=== PATIENT | female | born 1955 | race Caucasian/White ===

== ENCOUNTER → 2016-11-01 | Outpatient (CLI) | payer MEDICARE ==
--- NOTE | 2016-11-01 12:04 | MRI ---
EXAM DESCRIPTION: Brain MRI. CLINICAL HISTORY: Multiple sclerosis, headaches and syncopal episode. COMPARISON: MRI from 2008 TECHNIQUE: Multiplanar, multisequence MR images were acquired with and without IV contrast. FINDINGS: There are multiple T2 hyperintensities noted within the cerebral white matter on today's exam. These are stable in distribution, size and number when compared to prior study from November 19, 2007. There is no abnormal enhancement on today's exam on the 2D or 3D post contrasted images. Midline structures are unremarkable. Be matter is unremarkable. No abnormal extra-axial fluid. The ventricles are midline and unremarkable. Basilar cisterns are widely patent. Flow voids are maintained within the intracranial vessels. The orbits and globes are unremarkable. Paranasal sinuses are clear. IMPRESSION: All findings are unchanged when compared to November 19, 2007. Multiple T2 hyperintensities without enhancement are again unchanged. No new findings on today's exam to account for patient's headaches. Electronically signed by: Jhonatan Lee MD 11/01/2016 12:02
== END ==
LOC: MRI 07:58
PROVIDERS: ATTEND Psychiatry & Neurology Neurology
DX: G35 Multiple sclerosis (principal); Z01.812 Encounter for preprocedural laboratory examination

== ENCOUNTER → 2016-11-14 | Outpatient (CLI) | payer MEDICARE | LOC: GMAM 14:51 | PROVIDERS: ATTEND Family Medicine | DX: E04.2 Nontoxic multinodular goiter (principal) ==

== ENCOUNTER → 2017-06-12 | Outpatient (CLI) | payer MEDICARE | END | disposition home or self-care (01) | LOC: GMAM 10:58 | PROVIDERS: ATTEND Family Medicine | DX: E04.2 Nontoxic multinodular goiter (principal) ==

== ENCOUNTER → 2017-06-14 | Outpatient (CLI) | payer MEDICARE | END | disposition home or self-care (01) | LOC: GMAM 18:04 | PROVIDERS: ATTEND Family Medicine | DX: R31.1 Benign essential microscopic hematuria (principal); M54.5 Low back pain ==

== ENCOUNTER → 2017-08-13 | Outpatient (CLI) | payer MEDICARE ==
--- NOTE | 2017-08-13 11:41 | RAD ---
EXAM DESCRIPTION: Hand,Right 3 Views CLINICAL HISTORY: PAIN COMPARISON: None Available. TECHNIQUE: AP, LATERAL, AND OBLIQUE FINDINGS: Three-view right hand shows arthritic changes most prominent at the first carpometacarpal joint and at the second DIP joint with joint space narrowing and subchondral sclerosis and early marginal osteophyte formation. No fracture or bone lesion. IMPRESSION: 1. Osteoarthritis Electronically signed by: Jose De Jesus Jaramillo MD 08/13/2017 11:40 AM CDT
--- NOTE | 2017-08-13 11:41 | RAD ---
EXAM DESCRIPTION: Left hand, 3 views CLINICAL HISTORY: PAIN FINDINGS/ IMPRESSION: Multifocal interphalangeal osteoarthritis with joint space narrowing and marginal osteophytes most significantly affecting the index finger. Osteoarthritis carpometacarpal joint of the thumb and STT joint with joint space narrowing and small marginal osteophytes No fracture or acute osteochondral lesion. No demineralization or inflammatory erosion Electronically signed by: Joseph Leong MD 08/13/2017 11:40 AM CDT
== END | disposition home or self-care (01) ==
LOC: RAD 08:08
PROVIDERS: ATTEND Orthopaedic Surgery
DX: M79.641 Pain in right hand (principal); Z01.818 Encounter for other preprocedural examination

== ENCOUNTER 2017-08-22 05:49 | Day surgery (SDC) | payer MEDICARE ==
--- NOTE | 2017-08-20 10:59 | HP ---
CHIEF COMPLAINT: Hand numbness. HISTORY OF PRESENT ILLNESS: Oksana is a 61-year-old female with a history of pain and numbness in the right hand. She has had this going on for a long time and it has been getting progressively worse. She denies any radiation of pain or neurologic symptoms proximal to the wrist. She does not have any lower extremity neurologic symptoms at this time. Because of the ongoing nature of this, she has requested operative intervention. After discussing the risks, benefits and alternatives to that, the patient has given informed consent. PAST SURGICAL HISTORY: 1. Lumbar surgery. MEDICATIONS: 1. Adipex. 2. Calcium. 3. Celexa. 4. Lyrica. 5. Metformin. 6. Nalfon. 7. Potassium. 8. Premarin. 9. Tizanidine. 10. Tysabri. 11. Zocor. 12. Vitamin D. ALLERGIES: DICLOFENAC, HYDROXYCHLOROQUINE, QUINISULFATE. CODE STATUS: DNR. IMMUNIZATIONS: Up to date. SOCIAL HISTORY: The patient does not drink or use any illicit drugs. She does smoke. FAMILY HISTORY: None pertinent to today's complaint. REVIEW OF SYSTEMS: Negative except as indicated in the History of Present Illness. PHYSICAL EXAMINATION: VITAL SIGNS: Blood pressure 135/73. Pulse 56. Height 5'6". Weight 190. MENTAL STATUS: The patient is awake, alert, and is able to give a good history and participate in the physical. The patient is oriented to person, place and time. SKIN: Normal tone and turgor. HEENT: Normocephalic, atraumatic. Pupils equal, round and reactive. Mucosal membranes are moist. NECK: Normal range of motion. No thyromegaly, no lymphadenopathy. CHEST: Normal respiratory excursion. CARDIAC: Regular rate and rhythm. No murmurs, rubs or gallops. MUSCULOSKELETAL: She has positive carpal compression test. She has no significant thenar atrophy. She has positive Tinel's. She has full eyeglass inspector strength. She has full abduction strength. The hand is warm and well perfused. ASSESSMENT: 1. Carpal tunnel syndrome. PLAN: The plan at this point is for carpal tunnel release. We have discussed the risks, benefits, and alternatives to that and the patient has given informed consent. #[id number] [facility]
[2017-08-22] MEDS ORDERED: LACTATED RINGERS 1,000 ML ONE (05:57)
[2017-08-22] MEDS ORDERED: SODIUM CHL 0.9% 100ML MINI-BAG 100 ML IVPB ONE (05:57)
[2017-08-22] MEDS ORDERED: ceFAZolin SODIUM 1 GM VIAL ONE ×2 (05:58→07:52)
[2017-08-22] MEDS ORDERED: LIDOCAINE 1% 50 ML VIAL INJ ONE (07:52)
[2017-08-22] MEDS ORDERED: BUPIVACAINE 0.25% INJ 30 ML VIAL INJ ONE (07:52)
[2017-08-22] MEDS ORDERED: VANCOMYCIN HCL INJ 1,000 MG VIAL IVPB ONE (07:52)
[2017-08-22] MEDS ORDERED: MIDAZOLAM INJ 2 MG/2 ML VIAL ONE (09:44)
[2017-08-22] MEDS ORDERED: fentaNYL CITRATE INJ 50 MCG/ML AMP ONE (09:45)
[2017-08-22] MEDS ORDERED: LIDOCAINE 1% 10 ML VIAL INJ ONE (10:00)
[2017-08-22] MEDS ORDERED: PROPOFOL 200 MG/20 ML VIAL IV ONE (10:00)
[2017-08-22] MEDS ORDERED: GLYCOPYRROLATE 0.2 MG/ML VIAL IV ONE (10:00)
[2017-08-22 11:22] VITALS: O2SAT 95
[2017-08-22 11:25] VITALS: BP 152/81; TEMP 97.5
--- NOTE | 2017-08-23 08:58 | OP ---
DATE OF PROCEDURE: 08/22/17 PREOPERATIVE DIAGNOSIS: 1. Carpal tunnel syndrome. POSTOPERATIVE DIAGNOSIS: 1. Carpal tunnel syndrome. PROCEDURE: 1. Carpal tunnel release. SURGEON: Isiah Chicas MD. NEWSROOM INTERN: Pritesh Gray CST, -[employer]. ANESTHESIA: Local with sedation. COMPLICATIONS: None. FINDINGS: Thickening of the transverse carpal ligament. INDICATION: Ms. Larry has a long history of symptoms consistent with carpal tunnel syndrome. She has had conservative measures, however, has failed to gain relief. Because of the ongoing symptoms and failure of conservative measures, the patient has requested operative intervention. After discussing the risks, benefits and alternatives to that, the patient has given informed consent for carpal tunnel release. PROCEDURE: The patient was brought to the Operating Room and placed in the supine position. Sedation was administered and local anesthetic was injected into the operative area under sterile conditions. After the injection of anesthetic, the arm was sterilely prepped and draped. A longitudinal incision was made directly overlying the transverse carpal ligament and blunt dissection was carried down to the ligament. The transverse carpal ligament was sharply transected along its length and a Biggers elevator was used to ensure complete release of the ligament. Once release had been confirmed, the wound was thoroughly irrigated and the wound was closed with Nylon suture. A sterile dressing was placed and the patient was taken to the Day Surgery Unit. POSTOPERATIVE INSTRUCTIONS: The patient has been encouraged to do range of motion of the digits and will followup with us in two days. [facility][id number] [facility]
== END 2017-08-22 11:15 | disposition home or self-care (01) ==
LOC: AMB 05:49
PROVIDERS: ATTEND Orthopaedic Surgery
DX: G56.01 Carpal tunnel syndrome, right upper limb (principal); I10 Essential (primary) hypertension; E11.9 Type 2 diabetes mellitus without complications; E66.9 Obesity, unspecified; F17.200 Nicotine dependence, unspecified, uncomplicated; J44.9 Chronic obstructive pulmonary disease, unspecified; Z88.8 Allergy status to other drugs, medicaments and biological substances; Z79.84 Long term (current) use of oral hypoglycemic drugs; Z79.899 Other long term (current) drug therapy
CPT/HCPCS: 01810; 36416; 64721; 82948; J0690; J2250; J3010; J3370; J3490; J7050; J7120

== ENCOUNTER → 2017-10-05 | Outpatient (CLI) | payer MEDICARE | LOC: GMAM 10:37 | PROVIDERS: ATTEND Family Medicine | DX: E04.2 Nontoxic multinodular goiter (principal) ==

== ENCOUNTER → 2017-12-10 | Outpatient (CLI) | payer MEDICARE ==
--- NOTE | 2017-12-10 12:52 | MRI ---
EXAM DESCRIPTION: Brain w/wo Contrast: Magnetic Resonance Imaging. CLINICAL HISTORY: Multiple sclerosis. COMPARISON: MR scans cervical spine without and with gadolinium IV contrast on this visit. MRI scan of the brain without and with gadolinium IV contrast 11/01/2016. TECHNIQUE: Multiplanar, high-field MRI, multiple conventional sequences, without and with gadolinium IV contrast. No adverse reactions. Multiple axial diffusion sequences. FINDINGS: Multifocal right FLAIR and T2-weighted signal in the periventricular white matter and renteria-white matter junctions of the cerebral hemispheres. . Stable since the prior study. No hemorrhage or abnormal contrast enhancement. Normal signal in the bilateral basal ganglia. No hemorrhage, no cerebral edema, no mass-effect. Normal contrast enhancement. Normal signal in the cerebellar hemispheres. No hemorrhage, no cerebral edema, no mass-effect. Normal contrast enhancement. Bilateral bright FLAIR signal in the moris of the brainstem is symmetric with no hemorrhage mass effect or abnormal contrast enhancement. Concordance of the diffusion and non-diffusion sequences with no evidence of acute or subacute infarction. Cortical sulci, ventricles, and other CSF spaces, and the subdural spaces are normally configured for patients age. No effacement or displacement. No midline shift. No extra-axial hemorrhage. Normal contrast enhancement. Normal flow signal void in the major vessels of the [place], and the venous sinuses. IACs are symmetric bilaterally. Normal signal in the mastoid air cells. No mass effect in the bilateral Cerebellopontine angles. Normal contrast enhancement. Pituitary gland occupies most of the sella. Normal contrast enhancement. Base of the cerebellar tonsils is at the level of the foramen magnum. Mucoperiosteal thickening in the anterior bilateral ethmoid air cells; normal signal in the remaining paranasal sinuses. The bony calvarium is intact. IMPRESSION: 1. Multiple bilateral focal white matter lesions in the cerebral hemispheres and also in the moris of the brainstem. Stable since the prior study. These lesions are not enhancing. No mass effect. No new lesions. Findings would be consistent with multiple sclerosis in remission. Electronically signed by: Pritesh Brennan MD 12/10/2017 12:51 PM [facility]
--- NOTE | 2017-12-10 13:28 | MRI ---
EXAM DESCRIPTION: Cervical Spine w/wo Contrast: MRI. CLINICAL HISTORY: Multiple sclerosis. COMPARISON: MRI scan cervical spine 12/10/2017. MRI scan of the brain without and with gadolinium IV contrast on this visit. TECHNIQUE: Multiplanar MRI, multiple sequences, before and after gadolinium IV High-field. FINDINGS: Minimal arthrosis in the atlantoaxial joint. Prominence of the posterior aspect of the superior odontoid process almost abutting the superior cervical cord. No edema or cord compression at any level. No abnormal contrast enhancement. Minimal disc desiccation and disc space loss C2-3. No disc bulging. Canal and foramina are patent. Facets are unremarkable. Normal contrast enhancement. C5-6: Disc desiccation with anterior bulging and minimal endplate ridging. Posterior disc space loss. Posterior Modic type I endplate reactive changes with trace anterolisthesis. Disc not abutting the cord. Left uncinate spur and moderate narrowing of the left neural foramen. Mild canal narrowing. Bilateral facets are unremarkable. Normal contrast enhancement. C6-7: Disc desiccation with anterior bulging and endplate ridging. Posterior bulging 3 mm but not abutting the cord. Bilateral uncinate spur and mild bilateral neural foraminal narrowing. Facets are negative. No abnormal contrast enhancement. C7-T1: Minimal disc desiccation and disc space preserved. Trace anterolisthesis. Tiny posterior bulge. Canal and neural foramina are patent. Facets are negative. Normal contrast enhancement. T1-2: Disc desiccation with anterior bulging and endplate ridging. Minimal disc space loss. Trace anterolisthesis. Tiny posterior bulge but not abutting the cord. Bilateral uncinate spurs and minimal neural foraminal narrowing. Mild canal narrowing. Normal contrast enhancement. Normal signal in the C3-4 and C4-5 discs with no bulging. Disc spaces preserved. Canal and neural foramina are patent. Facets are negative. Normal contrast enhancement of the disc and facets. Bright T1 and T2 signal abutting the T2-3 disc space. Also bright on inversion recovery sequences. More diffuse in the T3 vertebral body. Disc space is decreased. Also endplate reactive changes abutting the disc at T3-T4 bright T2 and decreased signal T1. Minimal contrast enhancement. Normal enhancement in the cord with no canal stenosis. Spine is normally lordotic. Base of the cerebellar tonsils is above the foramen magnum. Paravertebral soft tissues negative.. Vertebral bodies are not compressed at any level. Normal marrow signal in the remaining vertebral bodies and the posterior elements. IMPRESSION: 1. No abnormal cord signal and no cord enhancement. No cord edema or compression. 2. C5-6 disc desiccation posterior spondylosis. Moderate narrowing of the left neural foramen. Not as severe as on the prior study. Normal contrast enhancement. 3. Posterior C6-7 disc bulge, mild bilateral neural foraminal narrowing. Normal enhancement. 4. Spondylosis at C2-3 and T3-4 which is progressed since the prior study. Electronically signed by: Pritesh Brennan MD 12/10/2017 1:27 PM [facility]
== END ==
LOC: MRI 07:05
PROVIDERS: ATTEND Psychiatry & Neurology Neurology
DX: G35 Multiple sclerosis (principal); G56.01 Carpal tunnel syndrome, right upper limb; G56.02 Carpal tunnel syndrome, left upper limb; M50.122 Cervical disc disorder at C5-C6 level with radiculopathy; M50.223 Other cervical disc displacement at C6-C7 level; Z01.812 Encounter for preprocedural laboratory examination

== ENCOUNTER → 2018-03-11 | Outpatient (CLI) | payer MEDICARE | LOC: GMAM 11:20 | PROVIDERS: ATTEND Family Medicine | DX: E04.2 Nontoxic multinodular goiter (principal) ==

== ENCOUNTER → 2018-07-02 | Outpatient (CLI) | payer MEDICARE | LOC: GMAM 14:41 | PROVIDERS: ATTEND Family Medicine | DX: E04.2 Nontoxic multinodular goiter (principal); Z79.899 Other long term (current) drug therapy ==

== ENCOUNTER → 2018-07-03 | Outpatient (CLI) | payer MEDICARE ==
--- NOTE | 2018-07-08 14:29 | MAM ---
EXAM DESCRIPTION: 3D Screening BILATERAL : Digital Mammography. CLINICAL HISTORY: 62 years Female SCREENING . No complaints. No personal history or family history of breast cancer. Childbirth. Postmenopausal. No HRT. Lifetime risk of developing breast cancer (Tyrer-Cuzick model) is 5.2 %. COMPARISON: 2-D digital screening bilateral study 06/27/2016. TECHNIQUE: Bilateral CC and MLO projection full-field images, Digital tomosynthesis mammographic technique. Bilateral digital 2-D full-field MLO images. CAD not utilized. FINDINGS: The breast parenchymal density pattern is: Scattered areas of fibroglandular density. No skin thickening or nipple retraction. Lymph nodes in the right axillary tail. Bilateral solitary microcalcifications. No new focal, stellate mass or density, focal asymmetry , and no suspicious microcalcifications bilaterally. Stable mammograms compared to prior study. Taking into account, differences in mammographic technique. IMPRESSION: Benign exam. BIRAD CATEGORY: 2 BENIGN FINDINGS. RECOMMENDATIONS: FOLLOW UP: Routine digital bilateral screening, one year interval from June 2018. Written communication explaining the IMPRESSION and follow-up, will be mailed to the patient and referring health care provider. According to the [employer], yearly mammograms are recommended starting at age 40 and continuing as long as a woman is in good health. Any breast change noted on a breast self-exam should be reported promptly to the patient's healthcare provider. Breast MRI is recommended for women with an approximately 20-25% or greater lifetime risk of breast cancer, including women with a strong family history of breast or ovarian cancer and women who have been treated for Hodgkin's disease. A negative mammographic report should not delay tissue diagnosis in patients with significant clinical history or physical findings. Extremely dense breast tissue limits the sensitivity of digital mammography. Electronically signed by: Pritesh Brennan MD 07/08/2018 2:28 PM CDT
== END ==
LOC: MAMMO 10:04
PROVIDERS: ATTEND Family Medicine
DX: Z12.31 Encounter for screening mammogram for malignant neoplasm of breast (principal)

== ENCOUNTER → 2018-11-06 | Outpatient (CLI) | payer MEDICARE | LOC: GMAM 16:53 | PROVIDERS: ATTEND Family Medicine | DX: R07.89 Other chest pain (principal) ==

== ENCOUNTER → 2019-01-16 | Outpatient (CLI) | payer MEDICARE | LOC: GMAM 14:20 | PROVIDERS: ATTEND Family Medicine | DX: E04.2 Nontoxic multinodular goiter (principal) ==

== ENCOUNTER → 2019-02-06 | Outpatient (CLI) | payer MEDICARE ==
--- NOTE | 2019-02-06 17:35 | US ---
US THYROID CLINICAL STATEMENT: THYROID NODULE. COMPARISON: None TECHNIQUE: Transcutaneous scanning, grayscale and Doppler modes. FINDINGS: Size right thyroid lobe: 3.0 x 1.9 x 1.7 cm Size left thyroid lobe: 2.5 x 1.4 x 1.3 cm Size isthmus: 0.2 cm Estimated total number of nodules greater than or equal to 1 cm: 2. Left lobe is heterogeneous with no nodules or cysts. Nodule 1: Size: 1.0 x 0.6 x 0.6 cm Location: Right Upper Composition: solid or almost completely solid: 2 points Echogenicity: hypoechoic: 2 points Shape: wider than tall: 0 points Margins: smooth: 0 points Echogenic foci: none: 0 points ACR Total Points: 4; ACR TI-RADS risk category: TR4 - moderately suspicious nodule. Nodule 2: Size: 1.3 x 1.2 x 0.8 cm Location: Right Lower Composition: solid or almost completely solid: 2 points. Minimally vascular. Echogenicity: hypoechoic: 2 points Shape: wider than tall: 0 points Margins: smooth: 0 points Echogenic foci: none: 0 points. ACR Total Points: 4; ACR TI-RADS risk category: TR4 - moderately suspicious nodule. Nodule 3: Size: 0.5 x 0.5 x 0.4 cm Location: Right Mid Composition: solid or almost completely solid: 2 points Echogenicity: hypoechoic: 2 points Shape: wider than tall: 0 points Margins: smooth: 0 points Echogenic foci: none: 0 points ACR Total Points: 4; ACR TI-RADS risk category: TR4 - moderately suspicious nodule. The soft tissue around the thyroid gland is unremarkable with no distinct cyst or dominant solid mass. No parenchymal edema or large calcifications. No overlying skin changes. Normal vascularity. IMPRESSION: 1. Nodule 1: ACR TI-RADS 2017 Category TR4. Recommend: Follow-up ultrasound in 1 year.. Recommendations based upon [facility] Best Practice recommendations and ACR TI-RADS 2017 guidelines. Please see below*. 2. Nodule 2: ACR TI-RADS 2017 Category TR4. Recommend: Follow-up ultrasound in 1 year. 3. Nodule 3: ACR TI-RADS 2017 Category TR4. Recommend: No further follow-up. 4. The soft tissue around the thyroid gland is unremarkable. *ACR TI-RADS 2017 Recommendations: TR1: No FNA or follow up TR2: No FNA or follow up TR3: FNA if >/= 2.5 cm, follow up if 1.5 - 2.4 cm in 1, 3, and 5 years TR4: FNA if >/= 1.5 cm, follow up if 1.0 - 1.4 cm in 1, 2, 3, and 5 years TR5: FNA if >/= 1.0 cm, follow up if 0.5 - 0.9 cm every year for 5 years ACR TI-RADS recommends that no more than two nodules with the highest ACR TI-RADS total point should be biopsied and no more than four nodules should be followed. These recommendations do not apply to patients with increased risk for thyroid cancer or patients with symptomatic thyroid disease. Electronically signed by: Pritesh Brennan MD 02/06/2019 5:32 PM CDT
== END ==
LOC: US 09:50
PROVIDERS: ATTEND Family Medicine
DX: E04.2 Nontoxic multinodular goiter (principal)

== ENCOUNTER → 2019-05-20 | Outpatient (CLI) | payer MEDICARE | LOC: GMAM 10:15 | PROVIDERS: ATTEND Family Medicine | DX: E04.2 Nontoxic multinodular goiter (principal); E78.00 Pure hypercholesterolemia, unspecified; E11.9 Type 2 diabetes mellitus without complications ==

== ENCOUNTER 2019-10-24 07:48 | Observation (INO) | payer MEDICARE ==
--- NOTE | 2019-10-24 08:03 | ED.PDOC ---
History of Present Illness - General Time Seen by Provider: 10/24/19 07:51 Source: patient, RN notes reviewed, Vital Signs reviewed, old records Exam Limitations: no limitations Additional Information: Patient presents with worsening SOB over the past 24 hours. She endorses a non- productive cough with nasal congestion over the past week. She denies any recent fevers, chills, nausea, vomiting or CP. No recent Abx. Recently on prednisone taper, last dose on 10/22/2019. She does smoke. Denies previous hx of COPD. Does not use any inhalers or nebs. States that she just feels like she cannot catch her breath. She denies any leg swelling or leg pain. No recent travel or surgeries. - History of Present Illness Cough Quality/Degree: moderate, dry cough Possible Cause: unknown cause Improving Factors: nothing Associated Symptoms: cough, nasal congestion, nasal drainage, shortness of breath Allergies/Adverse Reactions: Allergies NO KNOWN ALLERGY Allergy (Verified 07/31/13 10:17) Home Medications: Ambulatory Orders Citalopram Hydrobromide [Celexa] 40 mg PO DAILY 07/25/13 Metformin HCl [Metformin Hydrochloride] 500 mg PO DAILY 08/20/17 Azathioprine [Imuran] 50 mg PO BEDTIME 10/24/19 Fluconazole [Diflucan Tab] 100 mg PO PRN 10/24/19 Gabapentin [Neurontin] 300 mg PO .BID-TID 10/24/19 Levetiracetam [Keppra] 500 mg PO DAILY 10/24/19 Prednisone 20 mg PO PRN 10/24/19 Rituximab [Rituxan] 100 mg IV .[id number] 10/24/19 Review of Systems - Review of Systems Constitutional: States: see HPI. Denies: fever EENTM: States: nose congestion Respiratory: States: cough Cardiology: Denies: chest pain Gastrointestinal/Abdominal: Denies: vomiting Genitourinary: Denies: frequency Musculoskeletal: Denies: back pain Skin: Denies: rash Neurological: Denies: headache Endocrine: Denies: increased urine Past Medical History (General) - Patient Medical History Hx Congestive Heart Failure: No Hx Diabetes: Yes Hx MRSA: No Family Medical History - Family History Mother Family History: Unknown Living Status: Unknown Physical Exam - Physical Exam General Appearance: Alert, Well Developed, Well Groomed, Well Hydrated, Well Nourished, Other - Appears uncomfortable ENT Exam: nasal congestion Neck: non-tender, full range of motion, supple, normal inspection Respiratory: accessory muscle use, wheezing - Diffuse expiratory wheezing bilaterally, other - tachypnea Cardiovascular/Chest: normal peripheral pulses, regular rate, rhythm, no edema, no gallop, no JVD, no murmur Gastrointestinal/Abdominal: normal bowel sounds, non tender, soft Extremity: no pedal edema, no calf tenderness Neurologic: city councilman II-XII nml as tested, alert, normal mood/affect, oriented x 3 Skin Exam: warm/dry Progress - Progress Progress: DDx: Pneumonia, Viral URI, Sinusitis, COPD Exacerbation Patient presented for evaluation of SOB. She was diffusely wheezing on arrival. CXR was not suggestive of underlying pneumonia. She was given albuterol 2.5mg along with Duoneb with improvement in breathing. However, she was still SOB. She was therefore given second treatment without significant improvement in tachypnea. She was having desaturations as well requiring 2L nasal cannula. SOB appears to be consistent with underlying lung disease. There is also hyperinflation on CXR suggestive of underlying lung disease. Patient is chronic smoker with no formal diagnosis of COPD however symptoms are suggestive of COPD with exacerbation. She was given oral prednisone. Following admission, lab work was ordered. Suspicion for underlying ACS is unlikely. She will be admitted to the floor for further treatment and management. 10/24/19 09:00 Patient received one neb with improvement in SOB. Wheezing improved and better air movement. Will give another neb treatment. CXR not suggestive of acute disease. 10/24/19 09:43 Discussed plan for admission with patient. Discussed patient with Dr. Brian Carmona, who accepted patient. Lab work ordered. Patient will be admitted for continued treatment of Acute respiratory failure. - EKG/XRAY/CT XRAY: chest - No focal infiltrate. Cardiomegaly without pleural effusion or pulmonary vascular congestion Departure - Departure Clinical Impression: COPD exacerbation, Acute bronchospasm, Acute respiratory failure Disposition: Admit Patient Condition: Fair Referrals: Joseph Aguilar MD [Primary Care Provider] - 1-2 Weeks Home Medications: Ambulatory Orders Citalopram Hydrobromide [Celexa] 40 mg PO DAILY 07/25/13 Metformin HCl [Metformin Hydrochloride] 500 mg PO DAILY 08/20/17 Azathioprine [Imuran] 50 mg PO BEDTIME 10/24/19 Fluconazole [Diflucan Tab] 100 mg PO PRN 10/24/19 Gabapentin [Neurontin] 300 mg PO .BID-TID 10/24/19 Levetiracetam [Keppra] 500 mg PO DAILY 10/24/19 Prednisone 20 mg PO PRN 10/24/19 Rituximab [Rituxan] 100 mg IV .[id number] 10/24/19
[2019-10-24] MEDS ORDERED: ALBUTEROL SULFATE 2.5 MG/3 ML VIAL NEB ONE ×2 (08:12→08:54)
[2019-10-24] MEDS ORDERED: IPRATROPIUM/ALBUTEROL 3 ML VIAL NEB ONE ×2 (08:12→08:54)
--- NOTE | 2019-10-24 08:32 | RAD ---
Study: Single Frontal Radiograph of the Chest. Indication:SOB Comparison: June 01, 2009 Impression: Cardiomegaly without failure. Lungs hyperexpanded but otherwise clear. No acute osseous abnormality. Electronically signed by: Kane José MD 10/24/2019 8:31 AM [facility]
--- NOTE | 2019-10-24 10:03 | HP ---
SUPERVISING PHYSICIAN: Vitor Contreras M.D. CHIEF COMPLAINT: Shortness of breath. HISTORY OF PRESENT ILLNESS: Ms. Larry is a 63 year-old female patient that presented to the Emergency Room today complaining of shortness of breath that had worsened over the last 24 hours. She notes that she has had some severe nasal congestion and sinus headaches, and has not seen anybody recently for any treatment. She noted over the last week her sinus congestion has gotten worse and she has developed some shortness of breath that was significantly worse overnight. She does have a history of multiple sclerosis and is on prednisone taper treatment started on the . She is a chronic smoker. Initially in the Emergency Room, her O2 saturations were showing that she was hypoxic on room air satting 85% on room air initially. Even after several breathing treatments she continued to sat 85 to 87. Initially had improved up to 92% on nasal cannula at 2 liters. She denies that she is O2 dependent. Laboratory studies did show she had a leukocytosis with a developing left shift. Chest x-ray showed cardiomegaly without any failure. Lungs were hyper expanded but otherwise clear. She was given additional breathing treatments in attempts to get her off oxygen and treat as an outpatient, but was continuing to show desaturations even at rest on nasal cannula. Given her degree of hypoxia and developing respiratory infection, the patient is going to be placed in observation tonight for more aggressive treatment and further evaluation. She was placed in observation in stable condition. PAST MEDICAL HISTORY: 1. Chronic obstructive pulmonary disease in a chronic smoker. 2. Chronic lumbar disc disease. 3. Osteopenia. 4. Rheumatoid arthritis. 5. Multiple sclerosis. 6. Diabetes mellitus type 2. 7. History of seizures. Last seizure reported 3 months previously. 8. Anxiety and depression. PAST SURGICAL HISTORY: 1. Carpal tunnel surgery on the right in 2017. 2. Bladder suspension. 3. Right breast biopsy that was benign. 4. Uterine ablation for fibroid removal. 5. Ovarian cyst. 6. Lumbar back surgery. 7. Last echocardiogram in 2017 that showed an ejection fraction of 60%. HOME MEDICATIONS: 1. Keppra 500 mg at bedtime. 2. Rituxan 100 mg every 6 months. 3. Prednisone 20 mg. 4. Metformin 500 mg daily. 5. Gabapentin 300 mg t.i.d. 6. Fluconazole 100 mg p.r.n. 7. Celexa 40 mg daily. 8. Imuran 50 mg at bedtime. ALLERGIES: NO KNOWN DRUG ALLERGIES. FAMILY HISTORY: Father at unknown age, but had a history of diabetes mellitus and immune disorders. Mother at age 53, had an aortic aneurysm. She has 2 brothers, one has muscular dystrophy and polio. She has another who has diabetes mellitus, hypertension, cardiovascular disease and rheumatoid arthritis and another that has another immune type disorder. She has 1 sister who has type 2 diabetes, is bipolar with lupus. SOCIAL HISTORY: The patient lives in [place]. She is . She has 1 child. She is disabled. She is a current smoker who smokes approximately 1/2 to 1 pack a day since age 13. She denies any alcohol or illicit drug use. REVIEW OF SYSTEMS: CONSTITUTIONAL: Denies any fevers but notes that she has some general malaise and generalized weakness. No unintentional weight loss. HEENT: Nasal congestion with sinus pressure. Negative for earaches, sore throat or vision changes. Positive for chronic mouth ulcers and thrush. RESPIRATORY: Mild productive cough, increasing shortness of breath as noted in History of Present Illness without any wheezing. CARDIOVASCULAR: Denies any chest pains, palpitations or syncopal episodes. GASTROINTESTINAL: Denies any nausea, vomiting, abdominal pains, constipation or diarrhea. GENITOURINARY: Denies any dysuria, hematuria, polyuria. MUSCULOSKELETAL: Chronic back pain. Denies any joint swelling or arthralgias. Does have history of rheumatoid arthritis. SKIN: Denies any lesions, rashes, moles or unexplained bleeding. NEUROLOGIC: Positive for headache. Denies any recent seizures with last reported seizure 3 months previously. No ataxia. No reported other focal deficits. HEMATOLOGIC: Denies any easy bruising, unexplained bleeding or transfusion reactions. PHYSICAL EXAMINATION: VITAL SIGNS: Temperature on admission was 97.6, pulse 69, blood pressure was elevated at 199/105. She was showing saturations of 85% on room air and after breathing treatments showing saturations up to 92% with 2 liters nasal cannula, but easily desaturates with sleep. Blood on admission was better controlled at 143/86. GENERAL: The patient does appear unwell but in no acute distress. She is well hydrated and well nourished. She does show some discomfort from a headache. HEENT: Tympanic membranes clear bilaterally. Oropharynx is pink with poor dentition and some lesions to the buccal mucosa with the patient reporting it chronic. Posterior pharynx is pink with no notable erythema or swelling. Nose shows to be congested with no obvious drainage. She does have some pain to palpation of the frontal maxillary sinuses. NECK: Supple with full range of motion. Non-tender. CHEST: Lung sounds are diminished throughout with some inspiratory and expiratory wheezing. No rhonchi or rales. HEART: Regular rate and rhythm without any notable murmurs, gallops, or rubs. ABDOMEN: Obese but soft, nontender. Positive bowel sounds. EXTREMITIES: Show to be without any edema. NEUROLOGIC: Cranial nerves II-XII are grossly intact. Facial features are symmetrical. Extraocular movements are within normal limits. There is no nystagmus noted. Pupils are equal and reactive. SKIN: Warm, pink and dry. LABORATORY STUDIES: White count did show a leukocytosis of 12,000 with hemoglobin 14.2, hematocrit 42.5, platelet count 401,000. Differential does show a developing left shift. Chemistries show normal sodium with potassium low at 3.2, BUN 10, creatinine 0.52, blood sugar at 140. Troponin is 0.02. Liver functions are all within normal limits. Urinalysis showed 100 glucose, trace lysed blood with small leukocyte esterase. Microscopic revealed 3 to 5 RBCs, 20 to 30 WBCs, 0 to 1 epithelials, 1+ bacterial. MICROBIOLOGY: Urine culture is pending. Sputum culture is pending. Influenza A and B by PCR was negative. RADIOLOGY: Chest x-ray just showed cardiomegaly without any other abnormal findings. Sinus CT was pending. ASSESSMENT: 1. Chronic obstructive pulmonary disease exacerbation with hypoxia and tachypneic respirations with concerns for possibly developing community acquired pneumonia. 2. Sinusitis with CT of the sinuses pending. 3. Diabetes mellitus type 2 on oral therapy. 4. History of rheumatoid arthritis. 5. History of multiple sclerosis. 6. History of anxiety with depression. PLAN: Ms. Larry is going to be placed in observation for treatment of her chronic obstructive pulmonary disease exacerbation and continued oxygen as needed. I would anticipate her length of stay to be 1 to 2 days, probably discharging tomorrow. Will await her CT findings. Will go ahead and start her on antibiotic coverage given that she has chronic obstructive pulmonary disease and is a chronic smoker with azithromycin and Rocephin. I have her on sliding scale per protocol. She will be on deep venous thrombosis prophylaxis per protocol. I will go ahead and start her on some Magic mouthwash given her thrush. I will resume her home medications as appropriate to care. Will plan to repeat labs in the morning. Until we can transition to outpatient management will continue to monitor and treat as needed. #[id number] [facility]
[2019-10-24] MEDS ORDERED: LIDOCAINE VISCOUS 2% 15 ML, diphenhydrAMINE HCL 37.5 MG, NYSTATIN SUSPENSION 15 ML, ALU... PO PRN ×8 (12:52→19:30)
[2019-10-24] MEDS ORDERED: ALBUTEROL SULFATE 2.5 MG/3 ML VIAL NEB PRN (12:59)
[2019-10-24] MEDS ORDERED: SODIUM CHLORIDE 0.9% (FLUSH) 10 ML SYG IV PRN (12:59)
[2019-10-24] MEDS ORDERED: HYDROcodone 5MG/APAP 325MG 1 EA TAB PO PRN (12:59)
[2019-10-24] MEDS ORDERED: ONDANSETRON INJ 4 MG/2 ML VIAL IV PRN (12:59)
[2019-10-24] MEDS ORDERED: DEXTROSE 10% 500ML IVPB PRN (12:59)
[2019-10-24] MEDS ORDERED: MAGNESIUM HYDROXIDE 30 ML UD PO PRN (12:59)
[2019-10-24] MEDS ORDERED: GLUCAGON INJ 1 MG VIAL SUBCU PRN (12:59)
[2019-10-24] MEDS ORDERED: IV SET AND CAP CHANGE INJ INJ SCH (13:00)
[2019-10-24] MEDS ORDERED: LACTATED RINGERS 1,000 ML IVS ONE (13:09)
[2019-10-24] MEDS ORDERED: methylPREDNISolone SODIUM SUC 125 MG/2 ML VIAL IV ONE (13:09)
[2019-10-24] MEDS ORDERED: KETOROLAC TROMETHAMINE INJ 30 MG/ML VIAL IV ONE (13:11)
[2019-10-24] MEDS ORDERED: SODIUM CHLORIDE 0.9% 250ML 250 ML ONE (13:13)
[2019-10-24] MEDS ORDERED: SODIUM CHL 0.9% 50ML MIN-BAG+ 50 ML IVPB ONE (13:13)
[2019-10-24] MEDS ORDERED: AZITHROMYCIN IV 500 MG VIAL IVPB ONE (13:14)
[2019-10-24] MEDS ORDERED: cefTRIAXone SODIUM 1 GM VIAL ONE (13:14)
[2019-10-24] MEDS: cefTRIAXone SODIUM 1 GM in SODIUM CHL 0.9% 50ML MIN-BAG+ 50 ML IVPB SCH (13:21)
[2019-10-24] MEDS: AZITHROMYCIN IV 500 MG in SODIUM CHLORIDE 0.9% 250ML 250 ML IVPB SCH (13:55)
--- NOTE | 2019-10-24 14:39 | CT ---
EXAM DESCRIPTION: Sinuses CLINICAL HISTORY: chronic sinsuitis, fever COMPARISON: Brain MRI 12/10/2017 TECHNIQUE: Noncontrast axial CT of the maxillofacial structures were obtained with coronal and sagittal reconstructions. FINDINGS: BONES: No displaced facial fracture. The bilateral zygoma, orbital rim, and nasal bones are intact. The intraorbital structures are intact. PARANASAL SINUSES: Moderate circumferential mucoperiosteal thickening involves the right maxillary sinus and right anterior ethmoid air cells. There is near complete opacification of the right infundibulum obstructing drainage of the right maxillary sinus and anterior ethmoid air cells. No air-fluid levels. Right middle turbinate marialuisa bullosa measures 1.9 cm. The remainder of the paranasal sinuses (including the right frontal/sphenoid and left paranasal sinuses) are clear. The mastoid air cells are clear. Mild right nasal turbinate mucosal thickening. SOFT TISSUES: No drainable fluid collection or abscess. IMPRESSION: 1. Moderate right maxillary sinus and anterior ethmoid air cell mucoperiosteal thickening/sinusitis. This is likely related to near complete obstruction of the right ostiomeatal unit infundibulum and obstructed drainage pathway. This exam was performed according to our departmental dose-optimization program, which includes automated exposure control, adjustment of the mA and/or kV according to patient size and/or use of iterative reconstruction technique. Electronically signed by: David Gray DO 10/24/2019 2:37 PM [facility] ATTEND[facility]
[2019-10-24] MEDS ORDERED: levETIRAcetam 250 MG TAB PO ONE (15:34)
[2019-10-24] MEDS: KCL 20MEQ/0.45% NS 1,000 ML IVS PRN (16:00)
[2019-10-24] MEDS: INSULIN LISPRO 100 UNITS/ML PEN SUBCU SCH ×2 (17:04→21:20)
[2019-10-24] MEDS: IPRATROPIUM/ALBUTEROL 3 ML VIAL INH SCH ×2 (17:07→20:52)
[2019-10-24] MEDS: ACETAMINOPHEN 325 MG TAB PO PRN (18:31)
[2019-10-24] MEDS ORDERED: levETIRAcetam 250 MG TAB ONE (19:04)
[2019-10-24] MEDS: ENOXAPARIN SODIUM 40 MG/0.4 ML SYG SUBCU SCH (21:07)
[2019-10-24] MEDS: AZATHIOPRINE 50 MG PO SCH (21:07)
[2019-10-24] MEDS: levETIRAcetam 250 MG TAB PO SCH (21:07)
[2019-10-25] MEDS: KCL 20MEQ/0.45% NS 1,000 ML IVS PRN ×3 (00:47→21:05)
[2019-10-25] MEDS: PANTOPRAZOLE SODIUM TAB 40 MG PO SCH (06:15)
[2019-10-25] MEDS ORDERED: PANTOPRAZOLE SODIUM IV 40 MG VIAL IV SCH (06:30)
[2019-10-25] MEDS: INSULIN LISPRO 100 UNITS/ML PEN SUBCU SCH ×4 (07:16→21:12)
--- NOTE | 2019-10-25 07:55 | RAD ---
EXAM DESCRIPTION: X-ray two view chest. CLINICAL HISTORY: 63 years Female, Pneumonia COMPARISON: 10/24/2019 TECHNIQUE: PA and Lateral views of the chest performed on 10/25/2019 at 7:07 AM FINDINGS: The lungs are mildly hyperinflated and are clear. The costophrenic sulci are clear. There is no evidence of a pneumothorax. The cardiac silhouette is stable and is mildly prominent. The mediastinal contours are normal. No acute osseous abnormalities are identified. No focal soft tissue abnormalities are identified. IMPRESSION: 1. No definite acute intrathoracic disease. 2. Stable prominence of the cardiac silhouette. Electronically signed by: Mamie Anne DO 10/25/2019 7:53 AM [facility]
[2019-10-25] MEDS: GABAPENTIN 300 MG CAP PO SCH ×2 (08:03→21:03)
[2019-10-25] MEDS: CITALOPRAM HBR 20 MG TAB PO SCH (08:04)
[2019-10-25] MEDS: metFORMIN HCL 500 MG TAB PO SCH (08:04)
[2019-10-25] MEDS: IPRATROPIUM/ALBUTEROL 3 ML VIAL INH SCH ×4 (08:30→20:30)
[2019-10-25] MEDS: BUDESONIDE NEBS 0.5 MG/2 ML INH NEB SCH (08:43)
[2019-10-25] MEDS ORDERED: FLUCONAZOLE 100 MG TAB PO PRN (09:00)
[2019-10-25] MEDS: methylPREDNISolone SODIUM SUC 40 MG/ML VIAL IV SCH ×4 (09:51→23:47)
--- NOTE | 2019-10-25 11:44 | PN ---
DATE: 10/25/19 SUPERVISING PHYSICIAN: Vitor Contreras M.D. SUBJECTIVE: The patient notes that she is still having severe nasal congestion but it may be a little improved from yesterday. She has been having some shortness of breath and wheezing overnight, still requiring oxygen and desaturates easily. Yesterday afternoon I was called by the nurses. Apparently the patient had had a brief absent-like seizure in which she just stared out in space and would not answer or respond to questions. The patient reports that that is typically her seizures and she had not had one within 3 months. She was not showing to be postictal because she was alert and oriented immediately after the seizure and did not require any medical intervention. OBJECTIVE: VITAL SIGNS: Temperature 97.7, pulse 58, blood pressure 143/86, respirations 18, satting 93% on room air at rest, desaturates in the mid 80s on ambulation. GENERAL: The patient is resting comfortably. Appears to be in no acute distress. CHEST: Lung sounds are diminished throughout with some inspiratory and expiratory wheezing. No rhonchi or rales. HEART: Regular rate and rhythm. ABDOMEN: Soft, non-tender. Positive bowel sounds. EXTREMITIES: Without any edema. NEUROLOGIC: She is alert and oriented times three. LABORATORY: White count 11,900, hemoglobin 12.8, hematocrit 38.7, platelet count 351,000. Differential does show a left shift today. Chemistries show normal electrolytes, BUN 10, creatinine 0.47. Urinalysis yesterday on microscopic did show 3 to 5 RBCs, 20 WBCs and 1+ bacteria. MICROBIOLOGY: Sputum culture is pending. Urine culture is pending. RADIOLOGY: Chest x-ray this morning per radiology interpretation showed no definite acute intrathoracic disease. Stable prominence of the cardiac silhouette. She also had a CT of the sinuses that showed moderate right maxillary sinus and anterior ethmoid air cell mucoperiosteal thickening/sinusitis. This is noted likely to be related to a near complete obstruction of the right ostiomeatal unit infundibulum and obstructed drainage pathway. ASSESSMENT: 1. Chronic obstructive pulmonary disease, acute exacerbation with hypoxia without current evidence of pneumonia still requiring supplemental oxygen. 2. Sinusitis, likely chronic as noted on CT. 3. History of seizures with reported seizure yesterday with the patient on Keppra. 4. Diabetes mellitus type 2 on oral therapy. 5. History of rheumatoid arthritis. 6. History of multiple sclerosis. 7. History of anxiety with depression. 8. Urinary tract infection with cultures pending with the patient on parenteral antibiotic coverage. PLAN: I was hoping to be able to send the patient home today but she is still requiring some oxygen and she is quite tight and wheezy today. I am going to go ahead and start her on some steroids overnight and continue antibiotic coverage with both azithromycin and Rocephin for both treatment of sinusitis as well as coverage for possible pneumonia, although there is no evidence on x-ray at this point. She remains on sliding scale per protocol. Will continue with antibiotic coverage for urinary tract infection with Rocephin awaiting culture results. She is on deep venous thrombosis prophylaxis per protocol. She notes that the Magic mouthwash is working to relieve her thrush-like symptoms. Will continue with that. I have resumed her home medications as appropriate to care. Will plan to repeat labs in the morning and hopefully as soon as the patient can transition to oral medicine and get off oxygen, we can discharge home tomorrow. Until discharge will continue to monitor and treat as needed. #[id number] [facility]
[2019-10-25] MEDS ORDERED: cefTRIAXone SODIUM 1 GM VIAL ONE (12:28)
[2019-10-25] MEDS ORDERED: SODIUM CHLORIDE 0.9% 250ML 250 ML ONE (12:28)
[2019-10-25] MEDS ORDERED: AZITHROMYCIN IV 500 MG VIAL IVPB ONE (12:28)
[2019-10-25] MEDS ORDERED: SODIUM CHL 0.9% 50ML MIN-BAG+ 50 ML IVPB ONE (12:28)
[2019-10-25] MEDS: cefTRIAXone SODIUM 1 GM in SODIUM CHL 0.9% 50ML MIN-BAG+ 50 ML IVPB SCH (12:35)
[2019-10-25] MEDS: AZITHROMYCIN IV 500 MG in SODIUM CHLORIDE 0.9% 250ML 250 ML IVPB SCH (13:30)
[2019-10-25] MEDS: ACETAMINOPHEN 325 MG TAB PO PRN (16:47)
[2019-10-25] MEDS ORDERED: levETIRAcetam 250 MG TAB PO ONE (17:04)
[2019-10-25] MEDS ORDERED: methylPREDNISolone SODIUM SUC 125 MG/2 ML VIAL ONE (17:14)
[2019-10-25] MEDS: levETIRAcetam 250 MG TAB PO SCH (21:03)
[2019-10-25] MEDS: ENOXAPARIN SODIUM 40 MG/0.4 ML SYG SUBCU SCH (21:03)
[2019-10-25] MEDS: AZATHIOPRINE 50 MG PO SCH (21:03)
[2019-10-26] MEDS: KCL 20MEQ/0.45% NS 1,000 ML IVS PRN (04:40)
[2019-10-26] MEDS: methylPREDNISolone SODIUM SUC 40 MG/ML VIAL IV SCH (05:54)
[2019-10-26] MEDS: PANTOPRAZOLE SODIUM TAB 40 MG PO SCH (06:09)
[2019-10-26] MEDS: metFORMIN HCL 500 MG TAB PO SCH (07:29)
[2019-10-26] MEDS: INSULIN LISPRO 100 UNITS/ML PEN SUBCU SCH (07:29)
[2019-10-26] MEDS: BUDESONIDE NEBS 0.5 MG/2 ML INH NEB SCH (08:42)
[2019-10-26] MEDS: IPRATROPIUM/ALBUTEROL 3 ML VIAL INH SCH (08:42)
[2019-10-26] MEDS: GABAPENTIN 300 MG CAP PO SCH (09:17)
[2019-10-26] MEDS: CITALOPRAM HBR 20 MG TAB PO SCH (09:17)
[2019-10-26] MEDS: ACETAMINOPHEN 325 MG TAB PO PRN (09:17)
[2019-10-26 12:37] VITALS: BP 135/74; TEMP 98.1; O2SAT 94
--- NOTE | 2019-11-02 12:45 | DS ---
SUPERVISING PHYSICIAN: Vitor Contreras MD ADMITTING DIAGNOSES: 1. Chronic obstructive pulmonary disease exacerbation with hypoxia and tachypneic respirations with concerns for possibly developing community acquired pneumonia. 2. Sinusitis with CT of the sinuses pending. 3. Diabetes mellitus type 2 on oral therapy. 4. History of rheumatoid arthritis. 5. History of multiple sclerosis. 6. History of anxiety with depression. DISCHARGE DIAGNOSES: 1. 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 2. Sinusitis as noted on CT findings with sputum culture showing a Moraxella catarrhalis. 3. History of seizures with reported seizure yesterday with the patient on Keppra. 4. Diabetes mellitus type 2 on oral therapy. 5. History of rheumatoid arthritis. 6. History of multiple sclerosis. 7. History of anxiety with depression. 8. Urinary tract infection with cultures still pending with at time of discharge. REASON FOR HOSPITALIZATION: Ms. Larry is a 63 year-old female patient that presented to the Emergency Room today complaining of shortness of breath that had worsened over the last 24 hours. She notes that she has had some severe nasal congestion and sinus headaches, and has not seen anybody recently for any treatment. She noted over the last week her sinus congestion has gotten worse and she has developed some shortness of breath that was significantly worse overnight. She does have a history of multiple sclerosis and is on prednisone taper treatment started on the . She is a chronic smoker. Initially in the Emergency Room, her O2 saturations were showing that she was hypoxic on room air satting 85% on room air initially. Even after several breathing treatments she continued to sat 85 to 87. Initially had improved up to 92% on nasal cannula at 2 liters. She denies that she is O2 dependent. Laboratory studies did show she had a leukocytosis with a developing left shift. Chest x-ray showed cardiomegaly without any failure. Lungs were hyper expanded but otherwise clear. She was given additional breathing treatments in attempts to get her off oxygen and treat as an outpatient, but was continuing to show desaturations even at rest on nasal cannula. Given her degree of hypoxia and developing respiratory infection, the patient is going to be placed in observation tonight for more aggressive treatment and further evaluation. She was placed in observation in stable condition. LABORATORY STUDIES: White count on discharge was 11,900, hemoglobin 12.8, hematocrit 30.7. Differential did show a left shift. Chemistries showed normal electrolytes prior to discharge, creatinine 0.47. Liver functions all within normal limits. Troponin 0.02. Urinalysis sowed small amount of leukoesterase with RBCs being 3 to 5, 20 to 30 WBCs, 1+ bacteria. RADIOLOGY: Chest x-ray per radiology interpretation sowed cardiomegaly without failure. She also had a sinus CT without contrast and per radiology interpretation showed moderate right maxillary sinus and anterior ethmoid air cells and mucoperiosteal thickening sinusitis. Chest x-ray on discharge showed no definite acute intrathoracic disease. Please see all reports for details. HOSPITAL COURSE: Ms. Larry was admitted for treatment of hypoxia with acute sinusitis. She was given breathing treatments, started on antibiotic coverage with azithromycin and Rocephin. She also had chronic thrush which was treated with Magic mouthwash, she was already on Diflucan tablets. She did show good response to treatment and was felt able to clinically be treated as an outpatient. She was prescribed continued antibiotic coverage for the sinusitis. Prior to discharge, cultures were not available. She was discharged on continued coverage with Augmentin 875 mg twice a day for an additional 7 days. The decision for coverage was based on the fact that she is a immunocompromised risk due to the fact that she is being treated for rheumatoid arthritis on immune modulating medication. On discharge, vital signs were showing she was afebrile with temperature 98.1, blood [id number]. Oxygen saturation 94% on room air, respirations 18. PLAN: Ms. Larry was discharged on 10/26/19 for continued treatment of her chronic obstructive pulmonary disease exacerbation and acute sinusitis. She was to resume her home medications as prior to hospitalization and to followup with Dr. Aguilar and Dr. Smith. She was to call for appointment for coverage within 7 to 10 days or sooner if needed. Also, given the findings on CT it would be a good thing to followup with an ENT at some point. Activities as tolerated. She was continued on antibiotic coverage with Augmentin 875 mg twice a day for 7 days. Coverage was based on the fact that she is considered to be immunocompromised with Rituximab used to treat her immuno disorders. Diet to be diabetic diet as tolerated. All other medications prior to discharge were continued without modification and included: 1. Keppra 500 mg at bedtime. 2. Rituximab 100 mg every 6 months. 3. Prednisone 20 mg p.r.n. 4. Metformin 500 mg daily. 5. Gabapentin 300 mg b.i.d. to t.i.d. 6. Diflucan 100 mg as needed. 7. Celexa 40 mg daily. 8. Imuran 50 mg at bedtime. DISPOSITION: The patient is discharged to care of family members. CONDITION ON DISCHARGE: Stable and improved. #[id number] [facility]
== END 2019-10-26 12:55 | disposition home or self-care (01) ==
LOC: ER 07:48 → MS 10:00
PROVIDERS: ADMIT Nurse Practitioner Family; ATTEND Nurse Practitioner Family
DX: J44.1 Chronic obstructive pulmonary disease with (acute) exacerbation (principal); J96.01 Acute respiratory failure with hypoxia; J98.01 Acute bronchospasm; J32.0 Chronic maxillary sinusitis; J32.2 Chronic ethmoidal sinusitis; J34.89 Other specified disorders of nose and nasal sinuses; N39.0 Urinary tract infection, site not specified; B96.89 Other specified bacterial agents as the cause of diseases classified elsewhere; E87.6 Hypokalemia; G40.909 Epilepsy, unspecified, not intractable, without status epilepticus; E11.9 Type 2 diabetes mellitus without complications; M06.9 Rheumatoid arthritis, unspecified; G35 Multiple sclerosis; F41.9 Anxiety disorder, unspecified; F32.9 Major depressive disorder, single episode, unspecified; F17.210 Nicotine dependence, cigarettes, uncomplicated; I51.7 Cardiomegaly; M51.36 Other intervertebral disc degeneration, lumbar region; M85.88 Other specified disorders of bone density and structure, other site; Z79.84 Long term (current) use of oral hypoglycemic drugs; Z79.52 Long term (current) use of systemic steroids; Z79.899 Other long term (current) drug therapy
CPT/HCPCS: 96366 ×3; 96367; 96365; 96375; 96376 ×2; 96372 ×3; J7611 ×2; J0696 ×2; J1885; J1030 ×4; J2930 ×2; J7050 ×4; J1650 ×2; Q0163; J7626 ×3; J0456 ×2; J7620 ×9; J3480 ×5; J1815; J7120; 80048; 80053; 87086; 82948 ×8; 36415; 87077; 81001; 85025 ×2; 87070; 87205; 84484; 83880; 36416 ×6; 71045; 71046; 70486; 94640 ×10; 99406; 99285; G0378; 87502

== ENCOUNTER → 2020-03-04 | Outpatient (CLI) | payer MEDICARE ==
--- NOTE | 2020-03-04 15:19 | US ---
US HEAD NECK SOFT TISSUE CLINICAL STATEMENT:64 years Female NONTOXIC MULTINODULAR GOITER. COMPARISON: None TECHNIQUE: Transcutaneous scanning, grayscale and Doppler modes. FINDINGS: Size right thyroid lobe: 2.7 x 1.6 x 1.3 cm Size left thyroid lobe: 2.0 x 1.5 x 1.4 cm Size isthmus: 0.3 cm Estimated total number of nodules greater than or equal to 1 cm: 1. Both lobes are heterogeneous. No distinct cyst or large calcifications. Nodule 1: Size: 1.2 x 1.1 x 0.6 cm Location: Right Upper Composition: solid or almost completely solid: 2 points Echogenicity: hypoechoic: 2 points Shape: wider than tall: 0 points Margins: smooth: 0 points Echogenic foci: none: 0 points ACR Total Points: 4; ACR TI-RADS risk category: TR4 - moderately suspicious nodule. Nodule 2: Size: 0.8 x 0.8 x 0.7 cm Location: Right Upper Composition: solid or almost completely solid: 2 points Echogenicity: hypoechoic: 2 points Shape: taller than wide: 3 points Margins: smooth: 0 points Echogenic foci: none: 0 points ACR Total Points: >/= 7; ACR TI-RADS risk category: TR5 - highly suspicious nodule. The soft tissue around the thyroid gland shows no dominant solid mass, no distinct cyst, no large calcifications. Overlying skin is unremarkable. IMPRESSION: 1. Nodule 1: ACR TI-RADS 2017 Category TR4. Recommend: Follow-up ultrasound in 1 year.. Recommendations based upon [facility] Best Practice recommendations and ACR TI-RADS 2017 guidelines. Please see below*. 2. Nodule 2: ACR TI-RADS 2017 Category TR5. Recommend: Follow-up ultrasound in 1 year. 3. Soft tissue around the thyroid gland is unremarkable. *ACR TI-RADS 2017 Recommendations for imaging follow-up of nodules: TR1: No FNA or follow up TR2: No FNA or follow up TR3: FNA if >/= 2.5 cm, follow up if 1.5 - 2.4 cm in 1, 3, and 5 years TR4: FNA if >/= 1.5 cm, follow up if 1.0 - 1.4 cm in 1, 2, 3, and 5 years TR5: FNA if >/= 1.0 cm, follow up if 0.5 - 0.9 cm every year for 5 years ACR TI-RADS recommends that no more than two nodules with the highest ACR TI-RADS total point should be biopsied and no more than four nodules should be followed. These recommendations do not apply to patients with increased risk for thyroid cancer or patients with symptomatic thyroid disease. Electronically signed by: Pritesh Brennan MD 03/04/2020 3:17 PM CDT
== END ==
LOC: US 10:11
PROVIDERS: ATTEND Family Medicine
DX: E04.2 Nontoxic multinodular goiter (principal)

== ENCOUNTER → 2020-10-08 | Outpatient (CLI) | payer MEDICARE | LOC: GMAM 11:36 | PROVIDERS: ATTEND Family Medicine | DX: E04.2 Nontoxic multinodular goiter (principal); E78.00 Pure hypercholesterolemia, unspecified; E11.9 Type 2 diabetes mellitus without complications ==

== ENCOUNTER → 2020-10-11 | Outpatient (CLI) | payer MEDICARE ==
--- NOTE | 2020-10-12 13:22 | MRI ---
EXAM DESCRIPTION: Cervical Spine: MRI. CLINICAL HISTORY: 64 years Female DISC DISORDER COMPARISON: MRI scan cervical spine without and with gadolinium IV contrast, November 2017. MRI scan thoracic spine without gadolinium IV contrast on this visit. TECHNIQUE: Multiplanar, high-field MRI, multiple sequences, non-contrast Cervical spine. FINDINGS: C2-C3: Minimal disc desiccation and disc space loss with no bulging. Minimal right facet arthrosis and hypertrophy. Left facet negative. Canal and neural foramina patent. C3-C4: Normal signal of the disc with disc space maintained. Small left uncinate spur. Hypertrophic left facet arthrosis. Mild neural foraminal narrowing. This is progressed since the prior study. Canal and right neural foramen are patent. C4-C5: Normal signal and disc. Disc space maintained except for left uncinate spur. Minimal hypertrophy of the left facet joint. Mild narrowing of the left neural foramen. Minimal thickening of the posterior canal ligaments. This has progressed since the prior study. Right Neuroforamen and canal are patent. Right facet joint negative. C5-C6: Disc space loss and disc desiccation. Anterior bulging and endplate ridging. Trace anterolisthesis. Posterior disc space mild arthrosis with disc and endplate spur bulging into the canal but not touching the cord. Minimal thickening of the posterior canal ligaments. Moderate canal narrowing. Bilateral uncinate spurs. Hypertrophic arthrosis with facet joint with right facet negative. Mild narrowing right neural foramen. Moderate to severe narrowing left neural foramen. This has progressed since the prior study. C6-C7: Disc desiccation and mild disc space loss. Anterior bulging. Posterior disc osteophyte bulge to the right of midline almost touching the cord. Bilateral uncinate spurs. Thickening of the posterior ligaments. Facet joints are unremarkable. Mild bilateral neural foraminal narrowing more on the left. T1-T2: Moderate disc space loss and disc desiccation. Grade 1 anterolisthesis 1.5 mm. Anterior disc bulging and spurs. Posterior disc bulge and bilateral uncinate spurs. Moderate canal and neural foraminal narrowing. This has progressed since the prior study. Facet joints are negative. Similar appearance of the more inferior upper thoracic disc spaces. Please see MRI thoracic spine images and report on this visit. Normal signal in the C7-T1 disc with no bulging. Disc space preserved; trace anterolisthesis.. Canal and neural foramina are patent. Facet joints negative. Spinal alignment cervical lordosis maintained. No cord compression or cord edema. Atlantoaxial joint demonstrating posterior annular ligament thickening on the odontoid process abutting the superior ventral cord just below the medullary junction. Stable since the prior study. Base of the cerebellar tonsils is at the level of the foramen magnum. Paravertebral soft tissues negative. Vertebral bodies are not compressed at any level. Normal marrow signal in the remaining vertebral bodies and the posterior elements. IMPRESSION: 1. Progressive disc desiccation and bulging, endplate spurs, disc space uncinate spurs, and hypertrophic facet arthrosis since the prior study at multiple levels. This is resulting in significant narrowing of the canal and neuroforamina. 2. Moderate to severe narrowing of the left neural foramina at C5-C6 with posterior disc bulge, posterior disc space spondylosis, bilateral uncinate spurs, and facet hypertrophic arthrosis. This has progressed since the prior study. 3. Please refer to FINDINGS for description of results at other specific disc space levels. Please refer to images and report for MRI thoracic spine on the same visit. Electronically signed by: Pritesh Brennan MD 10/12/2020 1:21 PM [facility]
== END ==
LOC: MRI 09:08
PROVIDERS: ATTEND Psychiatry & Neurology Neurology
DX: M50.122 Cervical disc disorder at C5-C6 level with radiculopathy (principal); M47.22 Other spondylosis with radiculopathy, cervical region; M50.11 Cervical disc disorder with radiculopathy, high cervical region; M51.04 Intervertebral disc disorders with myelopathy, thoracic region; M25.78 Osteophyte, vertebrae

== ENCOUNTER → 2020-10-12 | Outpatient (CLI) | payer MEDICARE ==
--- NOTE | 2020-10-13 09:35 | MRI ---
EXAM DESCRIPTION: Thoracic Spine w/o Contrast: Magnetic Resonance Imaging. CLINICAL HISTORY: Intervertebral disc disorder COMPARISON: MRI scan of thoracic spine without contrast October 2007. MRI scan of the cervical spine without contrast on October 11. TECHNIQUE: Multiplanar, multiple standard sequences, non contrast MRI, thoracic spine. FINDINGS: Disc desiccation, disc space loss, and posterior bulging at T1-T2, T2-T3, T3-T4, T4-T5, and T5-T6. No canal or foraminal stenosis at these levels. Desiccation and minimal disc space loss T6-T7, T7-T8, T8-T9, and T9-T10. No significant canal or foraminal narrowing at these levels. No significant facet arthrosis/hypertrophy encroaching on the canal or foramina. Remaining discs with normal signal. Disc spaces are preserved. Canal and foramina are patent. Facet joints are unremarkable. Conus terminates at the lower L1 level. Cord with normal signal, no compression. Minimal levoscoliosis upper spine. Paravertebral soft tissues are unremarkable. Diffuse circumscribed hyperintense T1 and T2 lesion in the T3 vertebral body consistent with hemangioma and stable. Smaller hemangioma also stable superior T3 vertebral body abutting the endplate. Hemangioma stable T10. Hemangioma L1 no interval change. Mild to moderate endplate spondylosis T2-T3, T3-T4, T4-T5, T5-T6. Moderate endplate reactive changes anteriorly at T6-T7. Similar degree of spondylosis at T7-T8 and T8-T9. These changes have progressed since the prior study. Normal marrow signal in the remaining vertebral bodies and the posterior elements. Vertebral bodies are not compressed at any level. IMPRESSION: 1. Multiple levels of desiccated discs as described above. Varying degrees of disc space narrowing and bulging at some levels. No significant facet hypertrophic arthrosis. No significant canal or foraminal narrowing and no stenosis. The number of discs with desiccation and disc space loss has increased since the prior study. 2. Multiple disc space endplates with spondylosis which has progressed since the prior study. 3. Please refer to FINDINGS for discussion of results at specific disc space levels. Electronically signed by: Pritesh Brennan MD 10/13/2020 9:32 AM [facility]
== END ==
LOC: MRI 09:19
PROVIDERS: ATTEND Psychiatry & Neurology Neurology
DX: M51.04 Intervertebral disc disorders with myelopathy, thoracic region (principal); M47.14 Other spondylosis with myelopathy, thoracic region; M50.122 Cervical disc disorder at C5-C6 level with radiculopathy; D18.09 Hemangioma of other sites; M41.9 Scoliosis, unspecified